=== PATIENT | male | born 1980 | race African-American/Black ===

== ENCOUNTER 2017-05-20 01:08 | Emergency (ER) | payer MEDICAID ==
[~2017-05-20] VITALS: Ht 170.2 cm; Wt 82.0 kg
[2017-05-20] MEDS ORDERED: SODIUM CHLORIDE 0.9% 2,000 ML IV ONE (01:12)
[2017-05-20] MEDS ORDERED: TETANUS, DIPHTHERIA, PERTUSSIS VAC/PF 0.5ML (>7YR OLD) IM ONE (01:15)
[2017-05-20] MEDS ORDERED: MORPHINE SULFATE 4 MG/ML CPJ (NOT FOR IM USE) IV ONE ×4 (01:20→01:30)
[2017-05-20] MEDS ORDERED: ONDANSETRON HCL 4MG/2ML VIAL ONE (01:21)
[2017-05-20 01:26] LABS: BASOPHILS % 0.5 % (0.0-2.0); EOSINOPHILS % 1.7 % (0.0-5.0); HEMATOCRIT. 45.7 % (42.0-52.0); HEMOGLOBIN. 15.3 g/dL (14.0-18.0); MEAN CORPUSCULAR HEMOGLOBIN 30.6 pg (28.0-32.0); MEAN CORPUSCULAR VOLUME 91.4 fL (80.0-94.0); MEAN PLATELET VOLUME 9.6 fl (7.4-10.4); MONOCYTES % 4.9 % (2.0-8.0); NEUTROPHILS % 59.9 % (40.0-76.0); PLATELET 204 x1000/uL (130-400); RED BLOOD CELL COUNT 4.99 mill/uL (4.7-6.1); RED CELL DISTRIBUTION WIDTH 15.1 % (11.6-14.6)
[2017-05-20] MEDS ORDERED: ONDANSETRON HCL 4MG/2ML VIAL IV ONE (01:30)
[2017-05-20 01:31] LABS: CHLORIDE 107 mEq/L (98-107)
[2017-05-20 01:39] LABS: CARBON DIOXIDE 19 mEq/L (21-32)
[2017-05-20 01:57] VITALS: BP 148/90
== END 2017-05-20 02:09 | disposition short-term general hospital (02) ==
LOC: ER 01:08
DX: S31.139A Puncture wound of abdominal wall without foreign body, unspecified quadrant without penetration into peritoneal cavity, initial encounter (principal); R10.84 Generalized abdominal pain; R42 Dizziness and giddiness; X58.XXXA Exposure to other specified factors, initial encounter; Y93.89 Activity, other specified; Y92.89 Other specified places as the place of occurrence of the external cause; Y99.8 Other external cause status
CPT/HCPCS: 36415; 71010; 74000; 80053; 85025; 86850; 86900; 86901; 90471; 90715; 93005; 96361; 96374; 96375; 96376; 99291; J2270; J2405; J7030; Z7610